=== PATIENT | female | born 1970 | race Caucasian/White ===

== ENCOUNTER 2017-02-08 18:57 | Emergency (ER) | payer MEDICAID ==
[~2017-02-08] VITALS: Ht 162.6 cm; Wt 76.7 kg
[2017-02-08 19:24] VITALS: BP 149/110
== END 2017-02-08 20:59 | disposition home or self-care (01) ==
LOC: ED 18:57
DX: Z45.2 Encounter for adjustment and management of vascular access device (principal); I10 Essential (primary) hypertension; Z88.0 Allergy status to penicillin; Z88.5 Allergy status to narcotic agent

== ENCOUNTER 2017-05-04 12:17 | Emergency (ER) | payer MEDICAID ==
[~2017-05-04] VITALS: Ht 165.1 cm; Wt 78.5 kg
[2017-05-04 12:19] VITALS: BP 123/83; Ht 165.1 cm; Wt 78.5 kg
== END 2017-05-04 16:15 | disposition left against medical advice (07) ==
LOC: ED 12:17
DX: Z53.21 Procedure and treatment not carried out due to patient leaving prior to being seen by health care provider (principal)

== ENCOUNTER 2017-05-06 02:32 | Inpatient (IN) | payer MEDICAID ==
[2017-05-06] VITALS (12 sets, daily range): BP systolic 86–137; BP diastolic 42–77
[~2017-05-06] VITALS: Ht 165.1 cm; Wt 73.9 kg
[2017-05-06 03:54] LABS: PLATELET COUNT 287 x10^3mcL (130-400)
[2017-05-06 03:56] LABS: RED CELL DISTRIBUTION WIDTH 15.3 % (11.5-14.5)
[2017-05-06 04:03] LABS: BILIRUBIN TOTAL 1.01 mg/dL (0.20-1.00); CALCIUM 7.7 mg/dL (8.5-10.1); CARBON DIOXIDE 13.5 mmol/L (21-32); POTASSIUM SERUM 4.1 mmol/L (3.5-5.1)
[2017-05-06 04:10] LABS: ALBUMIN 2.1 g/dL (3.4-5.0); TOTAL PROTEIN, SERUM 6.1 g/dL (6.4-8.2)
[2017-05-06 04:16] LABS: CREATININE SERUM 5.3 mg/dL (0.6-1.0)
[2017-05-06 04:19] LABS: BAND NEUTROPHIL 48 % (0-10); METAMYELOCTE 32 % (0-2); MONOCYTE 1 % (0-7); MYELOCYTE 1 % (0-2); SEGMENTED NEUTROPHILS 16 % (37-75)
[2017-05-06 04:20] LABS: rbc morphology (normal/abnorm) NORMAL (NORMAL)
[2017-05-06 04:29] LABS: CK-MB 0.7 ng/mL (0-3.6)
[2017-05-06] MEDS ORDERED: DEPAKOTE500 MG PO (05:14)
[2017-05-06] MEDS ORDERED: DILANTIN100 MG PO (05:14)
[2017-05-06] MEDS ORDERED: HYDROCHLOROTH12.5 M3 PO (05:15)
[2017-05-06 06:33] LABS: LIPASE 33 IU/L (73-393); MAGNESIUM 1.6 mg/dL (1.8-2.4); PHOSPHOROUS 7.1 mg/dL (2.5-4.9)
[2017-05-06 06:43] LABS: AMYLASE 16 U/L (25-115); CHOLESTEROL 110 mg/dL (<200); CHOLESTEROL/HDL RATIO 8.5; FREE T4 0.76 ng/dL (0.76-1.46); HDL CHOLESTEROL 13 mg/dL (40-60); TRIGLYCERIDES 406 mg/dL (<150)
[2017-05-06 06:44] LABS: T4(THYROXINE) 2.6 ug/dL (4.7-13.3)
[2017-05-06 09:23] LABS: T3 TOTAL 0.27 ng/mL
[2017-05-06 10:07] LABS: UA SPECIFIC GRAVITY >=1.030 (1.005-1.035); microscopic required? YES; urine erythrocyte 1+ (NEGATIVE)
[2017-05-06 10:58] LABS: AMPHETAMINE QUAL UR POSITIVE (NEG <=1000)
[2017-05-07] VITALS (19 sets, daily range): BP systolic 75–144; BP diastolic 44–91
[2017-05-07 05:40] LABS: PLATELET COUNT 145 x10^3mcL (130-400)
[2017-05-07 05:48] LABS: BASOPHIL % 0 % (0-2); RED CELL DISTRIBUTION WIDTH 15.4 % (11.5-14.5)
[2017-05-07 05:59] LABS: CARBON DIOXIDE 22.7 mmol/L (21-32); MAGNESIUM 1.5 mg/dL (1.8-2.4); PHOSPHOROUS 5.6 mg/dL (2.5-4.9)
[2017-05-07 06:11] LABS: ALBUMIN 1.4 g/dL (3.4-5.0); CALCIUM 5.9 mg/dL (8.5-10.1); CREATININE SERUM 4.9 mg/dL (0.6-1.0)
[2017-05-07 06:12] LABS: POTASSIUM SERUM 2.9 mmol/L (3.5-5.1)
[2017-05-07 18:28] LABS: CARBON DIOXIDE 26.9 mmol/L (21-32); CREATININE SERUM 3.5 mg/dL (0.6-1.0)
[2017-05-07 18:41] LABS: POTASSIUM SERUM 2.6 mmol/L (3.5-5.1)
[2017-05-08] VITALS (19 sets, daily range): BP systolic 94–125; BP diastolic 49–62
[2017-05-08 07:12] LABS: CALCIUM 7.3 mg/dL (8.5-10.1); CARBON DIOXIDE 27.1 mmol/L (21-32); MAGNESIUM 1.8 mg/dL (1.8-2.4); PHOSPHOROUS 2.8 mg/dL (2.5-4.9)
[2017-05-08 07:15] LABS: CREATININE SERUM 4.6 mg/dL (0.6-1.0); POTASSIUM SERUM 2.6 mmol/L (3.5-5.1)
[2017-05-08 07:19] LABS: PLATELET COUNT 55 x10^3mcL (130-400); RED CELL DISTRIBUTION WIDTH 15.4 % (11.5-14.5)
[2017-05-08 13:15] LABS: CALCIUM 6.9 mg/dL (8.5-10.1); CARBON DIOXIDE 28.7 mmol/L (21-32); POTASSIUM SERUM 5.3 mmol/L (3.5-5.1)
[2017-05-08 13:16] LABS: CREATININE SERUM 4.8 mg/dL (0.6-1.0)
[2017-05-08 13:50] LABS: BAND NEUTROPHIL 4 % (0-10); BASOPHIL 0 % (0-2); MONOCYTE 2 % (0-7); PLATELET MORPHOLOGY PLATELETS DECREASED; SEGMENTED NEUTROPHILS 93 % (37-75); rbc morphology (normal/abnorm) ABNORMAL (NORMAL)
[2017-05-08 17:10] LABS: CALCIUM 7.1 mg/dL (8.5-10.1); CARBON DIOXIDE 27.7 mmol/L (21-32)
[2017-05-08 17:15] LABS: POTASSIUM SERUM 2.6 mmol/L (3.5-5.1)
[2017-05-09] VITALS (15 sets, daily range): BP systolic 106–143; BP diastolic 54–84
[2017-05-09 05:35] LABS: CALCIUM 7.8 mg/dL (8.5-10.1); CARBON DIOXIDE 26.1 mmol/L (21-32); MAGNESIUM 2.1 mg/dL (1.8-2.4); PHOSPHOROUS 2.4 mg/dL (2.5-4.9)
[2017-05-09 05:37] LABS: CREATININE SERUM 5.4 mg/dL (0.6-1.0); POTASSIUM SERUM 2.9 mmol/L (3.5-5.1)
[2017-05-09 05:47] LABS: PLATELET COUNT 40 x10^3mcL (130-400); RED CELL DISTRIBUTION WIDTH 16.1 % (11.5-14.5)
[2017-05-09 06:10] LABS: BAND NEUTROPHIL 3 % (0-10); BASOPHIL 0 % (0-2); MONOCYTE 4 % (0-7); SEGMENTED NEUTROPHILS 91 % (37-75)
[2017-05-09 06:11] LABS: PLATELET MORPHOLOGY PLATELETS DECREASED; rbc morphology (normal/abnorm) ABNORMAL (NORMAL)
[2017-05-09 17:41] LABS: CALCIUM 8.4 mg/dL (8.5-10.1)
[2017-05-09 17:49] LABS: CREATININE SERUM 4.2 mg/dL (0.6-1.0); POTASSIUM SERUM 2.8 mmol/L (3.5-5.1)
[2017-05-10 03:20] VITALS: BP 111/77
[2017-05-10 05:02] LABS: BASOPHIL % 0 % (0-2); CALCIUM 8.3 mg/dL (8.5-10.1); CARBON DIOXIDE 25.2 mmol/L (21-32); MAGNESIUM 2.1 mg/dL (1.8-2.4); PHOSPHOROUS 3.2 mg/dL (2.5-4.9); PLATELET COUNT 75 x10^3mcL (130-400); POTASSIUM SERUM 3.9 mmol/L (3.5-5.1); RED CELL DISTRIBUTION WIDTH 16.3 % (11.5-14.5)
[2017-05-10 05:15] LABS: CREATININE SERUM 4.8 mg/dL (0.6-1.0)
[2017-05-10 07:45] VITALS: BP 109/69
[2017-05-10 18:40] VITALS: BP 108/59
[2017-05-10 21:18] VITALS: BP 123/78
[2017-05-11 04:57] VITALS: BP 112/71
[2017-05-11 07:39] LABS: CALCIUM 8.1 mg/dL (8.5-10.1); CARBON DIOXIDE 22.7 mmol/L (21-32); PHOSPHOROUS 4.5 mg/dL (2.5-4.9); POTASSIUM SERUM 3.8 mmol/L (3.5-5.1)
[2017-05-11 07:42] LABS: PLATELET COUNT 114 x10^3mcL (130-400); RED CELL DISTRIBUTION WIDTH 16.4 % (11.5-14.5)
[2017-05-11 07:43] LABS: CREATININE SERUM 4.8 mg/dL (0.6-1.0)
[2017-05-11 09:18] VITALS: BP 114/77
[2017-05-11 10:58] LABS: BAND NEUTROPHIL 2 % (0-10); BASOPHIL 0 % (0-2); METAMYELOCTE 4 % (0-2); MONOCYTE 6 % (0-7); MYELOCYTE 2 % (0-2); SEGMENTED NEUTROPHILS 81 % (37-75)
[2017-05-11 10:59] LABS: rbc morphology (normal/abnorm) ABNORMAL (NORMAL)
[2017-05-11 11:02] LABS: target cell (codocyte) 1+
[2017-05-11 11:18] VITALS: BP 118/79
[2017-05-11 16:41] VITALS: BP 114/76
[2017-05-11 21:06] VITALS: BP 117/70
[2017-05-12 05:57] VITALS: BP 128/79
[2017-05-12 06:52] LABS: PLATELET COUNT 184 x10^3mcL (130-400)
[2017-05-12 07:08] LABS: RED CELL DISTRIBUTION WIDTH 16.5 % (11.5-14.5)
[2017-05-12 07:13] LABS: CARBON DIOXIDE 23.8 mmol/L (21-32); MAGNESIUM 2.1 mg/dL (1.8-2.4); PHOSPHOROUS 5.1 mg/dL (2.5-4.9); POTASSIUM SERUM 3.5 mmol/L (3.5-5.1)
[2017-05-12 07:15] LABS: CREATININE SERUM 4.3 mg/dL (0.6-1.0)
[2017-05-12 10:26] VITALS: BP 120/76
[2017-05-12 10:36] LABS: BAND NEUTROPHIL 11 % (0-10); BASOPHIL 0 % (0-2); METAMYELOCTE 5 % (0-2); MONOCYTE 5 % (0-7); MYELOCYTE 3 % (0-2); SEGMENTED NEUTROPHILS 71 % (37-75)
[2017-05-12 10:37] LABS: PLATELET MORPHOLOGY LARGE PLATELET SEEN; rbc morphology (normal/abnorm) ABNORMAL (NORMAL); target cell (codocyte) 1+; tear drop cell (dacryocyte) 1+
[2017-05-12 14:23] VITALS: BP 125/76
[2017-05-12 16:56] VITALS: BP 121/78
[2017-05-12 20:30] VITALS: BP 112/86
[2017-05-13 04:30] VITALS: BP 98/61
[2017-05-13 06:40] LABS: PLATELET COUNT 266 x10^3mcL (130-400)
[2017-05-13 06:49] LABS: RED CELL DISTRIBUTION WIDTH 16.4 % (11.5-14.5)
[2017-05-13 06:57] LABS: CALCIUM 7.9 mg/dL (8.5-10.1); CARBON DIOXIDE 28.3 mmol/L (21-32); CREATININE SERUM 3.1 mg/dL (0.6-1.0); MAGNESIUM 1.8 mg/dL (1.8-2.4); PHOSPHOROUS 4.8 mg/dL (2.5-4.9)
[2017-05-13 09:01] VITALS: BP 124/78
[2017-05-13 10:43] LABS: ATYPICAL LYMPH 1 %; BAND NEUTROPHIL 4 % (0-10); BASOPHIL 0 % (0-2); MONOCYTE 7 % (0-7); PLATELET MORPHOLOGY PLATELETS NORMAL; SEGMENTED NEUTROPHILS 84 % (37-75); rbc morphology (normal/abnorm) ABNORMAL (NORMAL)
[2017-05-13 17:35] VITALS: BP 111/77
[2017-05-13 21:45] VITALS: BP 105/64
[2017-05-14 06:10] VITALS: BP 118/70
[2017-05-14 06:11] LABS: PLATELET COUNT 376 x10^3mcL (130-400)
[2017-05-14 06:14] LABS: CALCIUM 8.1 mg/dL (8.5-10.1); CARBON DIOXIDE 31.4 mmol/L (21-32); CREATININE SERUM 2.3 mg/dL (0.6-1.0); MAGNESIUM 1.5 mg/dL (1.8-2.4); PHOSPHOROUS 3.9 mg/dL (2.5-4.9)
[2017-05-14 06:38] LABS: POTASSIUM SERUM 2.9 mmol/L (3.5-5.1)
[2017-05-14 06:42] LABS: RED CELL DISTRIBUTION WIDTH 16.7 % (11.5-14.5)
[2017-05-14 08:52] VITALS: BP 117/76
[2017-05-14 11:04] LABS: BAND NEUTROPHIL 5 % (0-10); BASOPHIL 0 % (0-2); MONOCYTE 7 % (0-7); PLATELET MORPHOLOGY PLATELETS NORMAL; SEGMENTED NEUTROPHILS 83 % (37-75)
[2017-05-14 11:06] LABS: rbc morphology (normal/abnorm) ABNORMAL (NORMAL); target cell (codocyte) 1+
[2017-05-14 11:13] VITALS: Ht 165.1 cm; Wt 73.9 kg
[2017-05-14 12:46] LABS: CALCIUM 8.1 mg/dL (8.5-10.1); CARBON DIOXIDE 30.6 mmol/L (21-32); POTASSIUM SERUM 3.2 mmol/L (3.5-5.1)
[2017-05-14 13:01] VITALS: BP 123/82
[2017-05-14 16:53] VITALS: BP 128/81
[2017-05-14 20:47] VITALS: BP 114/71
[2017-05-15 04:53] VITALS: BP 134/93
[2017-05-15 06:43] LABS: BASOPHIL % 0 % (0-2); PLATELET COUNT 406 x10^3mcL (130-400); RED CELL DISTRIBUTION WIDTH 16.7 % (11.5-14.5)
[2017-05-15 06:53] LABS: CALCIUM 8.2 mg/dL (8.5-10.1); CARBON DIOXIDE 30.6 mmol/L (21-32); CREATININE SERUM 1.7 mg/dL (0.6-1.0); MAGNESIUM 1.5 mg/dL (1.8-2.4); POTASSIUM SERUM 3.4 mmol/L (3.5-5.1)
[2017-05-15 09:02] VITALS: BP 109/80
[2017-05-15 13:01] VITALS: BP 105/70
[2017-05-15 17:04] VITALS: BP 132/84
[2017-05-15 20:39] VITALS: BP 81/52
[2017-05-15 21:14] VITALS: BP 129/82
[2017-05-16] VITALS (7 sets, daily range): BP systolic 112–154; BP diastolic 67–92
[2017-05-16 06:34] LABS: PLATELET COUNT 392 x10^3mcL (130-400)
[2017-05-16 06:35] LABS: BASOPHIL % 0 % (0-2); RED CELL DISTRIBUTION WIDTH 16.4 % (11.5-14.5)
[2017-05-16 07:43] LABS: CALCIUM 7.7 mg/dL (8.5-10.1); CARBON DIOXIDE 32.5 mmol/L (21-32); CREATININE SERUM 1.3 mg/dL (0.6-1.0); MAGNESIUM 1.4 mg/dL (1.8-2.4); PHOSPHOROUS 3.2 mg/dL (2.5-4.9); POTASSIUM SERUM 3.3 mmol/L (3.5-5.1)
[2017-05-17 06:04] VITALS: BP 114/78
[2017-05-17 07:14] LABS: BASOPHIL % 0.1 % (0-2)
[2017-05-17 07:15] LABS: PLATELET COUNT 410 x10^3mcL (130-400); RED CELL DISTRIBUTION WIDTH 16.2 % (11.5-14.5)
[2017-05-17 08:47] VITALS: BP 112/73
[2017-05-17 08:55] LABS: CALCIUM 7.7 mg/dL (8.5-10.1); CARBON DIOXIDE 31.6 mmol/L (21-32); CREATININE SERUM 1.3 mg/dL (0.6-1.0); MAGNESIUM 1.4 mg/dL (1.8-2.4); PHOSPHOROUS 3.3 mg/dL (2.5-4.9)
[2017-05-17 08:59] LABS: POTASSIUM SERUM 2.9 mmol/L (3.5-5.1)
[2017-05-17 13:13] VITALS: BP 126/78
[2017-05-17 16:43] VITALS: BP 104/66
[2017-05-17 20:42] VITALS: BP 148/75
[2017-05-18 05:36] VITALS: BP 117/73
[2017-05-18 06:52] LABS: CALCIUM 8.2 mg/dL (8.5-10.1); CARBON DIOXIDE 33.6 mmol/L (21-32); CREATININE SERUM 1.1 mg/dL (0.6-1.0); MAGNESIUM 1.9 mg/dL (1.8-2.4); POTASSIUM SERUM 3.6 mmol/L (3.5-5.1)
[2017-05-18 06:55] LABS: BASOPHIL % 0 % (0-2); PLATELET COUNT 417 x10^3mcL (130-400); RED CELL DISTRIBUTION WIDTH 16.7 % (11.5-14.5)
[2017-05-18 10:18] VITALS: BP 113/68
[2017-05-18 18:00] VITALS: BP 131/84
[2017-05-18 21:34] VITALS: BP 109/79
[2017-05-19 04:48] VITALS: BP 114/77
[2017-05-19 07:18] LABS: CARBON DIOXIDE 29.6 mmol/L (21-32); CREATININE SERUM 1.1 mg/dL (0.6-1.0); MAGNESIUM 1.6 mg/dL (1.8-2.4); POTASSIUM SERUM 3.1 mmol/L (3.5-5.1)
[2017-05-19 07:21] LABS: BASOPHIL % 0.3 % (0-2)
[2017-05-19 07:59] LABS: PLATELET COUNT 404 x10^3mcL (130-400); RED CELL DISTRIBUTION WIDTH 17.1 % (11.5-14.5)
[2017-05-19 09:09] VITALS: BP 114/77
[2017-05-19 11:18] VITALS: BP 123/81
[2017-05-19 14:22] VITALS: BP 127/64
[2017-05-19 17:30] VITALS: BP 116/70
[2017-05-19 21:21] VITALS: BP 111/77
[2017-05-20 05:24] VITALS: BP 107/80
[2017-05-20 07:54] LABS: BASOPHIL % 0.2 % (0-2)
[2017-05-20 07:55] LABS: PLATELET COUNT 428 x10^3mcL (130-400); RED CELL DISTRIBUTION WIDTH 17.4 % (11.5-14.5)
[2017-05-20 08:09] LABS: CALCIUM 7.8 mg/dL (8.5-10.1); CARBON DIOXIDE 28.1 mmol/L (21-32); CREATININE SERUM 1.1 mg/dL (0.6-1.0); MAGNESIUM 1.6 mg/dL (1.8-2.4); PHOSPHOROUS 2.5 mg/dL (2.5-4.9); POTASSIUM SERUM 3.7 mmol/L (3.5-5.1)
[2017-05-20 08:50] VITALS: BP 118/78
[2017-05-20 16:35] VITALS: BP 131/88
[2017-05-20 20:28] VITALS: BP 132/87
[2017-05-21 05:48] VITALS: BP 123/86
[2017-05-21 08:04] LABS: CARBON DIOXIDE 31.2 mmol/L (21-32); CHLORIDE SERUM 105 mmol/L (98-107); GFR1 > 60 mL/min; GLUCOSE SERUM 87 mg/dL (74-106); MAGNESIUM 1.8 mg/dL (1.8-2.4); PHOSPHOROUS 3.6 mg/dL (2.5-4.9); SODIUM SERUM 141 mmol/L (136-145)
[2017-05-21 08:30] LABS: BASOPHIL % 0 % (0-2); RED CELL DISTRIBUTION WIDTH 17.3 % (11.5-14.5)
[2017-05-21 09:25] VITALS: BP 133/88
[2017-05-21 09:39] LABS: PLATELET COUNT 511 x10^3mcL (130-400)
[2017-05-21 16:41] VITALS: BP 138/88
[2017-05-21 21:54] VITALS: BP 134/91
[2017-05-22 05:56] VITALS: BP 123/70
[2017-05-22 08:01] LABS: CALCIUM 7.7 mg/dL (8.5-10.1); CARBON DIOXIDE 29.2 mmol/L (21-32); CREATININE SERUM 1.1 mg/dL (0.6-1.0); MAGNESIUM 1.8 mg/dL (1.8-2.4); PHOSPHOROUS 3.4 mg/dL (2.5-4.9); POTASSIUM SERUM 3.7 mmol/L (3.5-5.1)
[2017-05-22 08:15] LABS: BASOPHIL % 0.7 % (0-2)
[2017-05-22 08:19] LABS: PLATELET COUNT 461 x10^3mcL (130-400); RED CELL DISTRIBUTION WIDTH 17.6 % (11.5-14.5)
[2017-05-22 08:57] VITALS: BP 132/85
[2017-05-22 09:02] VITALS: BP 132/85
[2017-05-22 12:06] LABS: AMPHETAMINE QUAL UR NONE DETECTED (NEG <=1000)
[2017-05-22 16:31] VITALS: BP 156/86
[2017-05-22 20:55] VITALS: BP 139/95
[2017-05-22 22:30] VITALS: BP 140/75
[2017-05-23 05:35] VITALS: BP 133/92
[2017-05-23 06:30] VITALS: BP 123/79
[2017-05-23 07:38] LABS: BASOPHIL % 0.1 % (0-2); PLATELET COUNT 461 x10^3mcL (130-400); RED CELL DISTRIBUTION WIDTH 17.3 % (11.5-14.5)
[2017-05-23 07:47] LABS: CALCIUM 7.6 mg/dL (8.5-10.1); CARBON DIOXIDE 29.4 mmol/L (21-32); CREATININE SERUM 1.2 mg/dL (0.6-1.0); MAGNESIUM 1.8 mg/dL (1.8-2.4); PHOSPHOROUS 3.2 mg/dL (2.5-4.9); POTASSIUM SERUM 3.9 mmol/L (3.5-5.1)
[2017-05-23 09:11] VITALS: BP 147/89
[2017-05-23 17:19] VITALS: BP 144/107
[2017-05-23 21:40] VITALS: BP 145/96
[2017-05-24 05:38] VITALS: BP 141/98
[2017-05-24 07:20] LABS: BASOPHIL % 0.2 % (0-2)
[2017-05-24 07:27] LABS: PLATELET COUNT 513 x10^3mcL (130-400)
[2017-05-24 07:39] LABS: CARBON DIOXIDE 28.9 mmol/L (21-32); CREATININE SERUM 1.1 mg/dL (0.6-1.0); MAGNESIUM 1.8 mg/dL (1.8-2.4); PHOSPHOROUS 3.9 mg/dL (2.5-4.9); POTASSIUM SERUM 3.9 mmol/L (3.5-5.1)
[2017-05-24 09:46] VITALS: BP 149/97
[2017-05-24 17:55] VITALS: BP 136/91
[2017-05-25 06:03] VITALS: BP 129/87
[2017-05-25 07:23] LABS: CALCIUM 8.3 mg/dL (8.5-10.1); CARBON DIOXIDE 29.4 mmol/L (21-32); CHLORIDE SERUM 104 mmol/L (98-107); GFR1 > 60 mL/min; GLUCOSE SERUM 94 mg/dL (74-106); PHOSPHOROUS 4.9 mg/dL (2.5-4.9); POTASSIUM SERUM 3.7 mmol/L (3.5-5.1); SODIUM SERUM 142 mmol/L (136-145)
[2017-05-25 07:40] LABS: BASOPHIL % 0.3 % (0-2)
[2017-05-25 07:41] LABS: PLATELET COUNT 422 x10^3mcL (130-400); RED CELL DISTRIBUTION WIDTH 18.2 % (11.5-14.5)
[2017-05-25 08:58] VITALS: BP 132/89
[2017-05-25 16:28] VITALS: BP 145/92
[2017-05-25 20:29] VITALS: BP 125/86
[2017-05-26 05:25] VITALS: BP 129/79
[2017-05-26 06:48] LABS: CALCIUM 7.8 mg/dL (8.5-10.1); CARBON DIOXIDE 28.4 mmol/L (21-32); CHLORIDE SERUM 107 mmol/L (98-107); GFR1 > 60 mL/min; GLUCOSE SERUM 89 mg/dL (74-106); MAGNESIUM 2.1 mg/dL (1.8-2.4); PHOSPHOROUS 4.6 mg/dL (2.5-4.9); POTASSIUM SERUM 3.9 mmol/L (3.5-5.1); SODIUM SERUM 143 mmol/L (136-145)
[2017-05-26 07:23] LABS: BASOPHIL % 0.3 % (0-2); PLATELET COUNT 384 x10^3mcL (130-400); RED CELL DISTRIBUTION WIDTH 18.4 % (11.5-14.5)
[2017-05-26 08:55] VITALS: BP 119/76
[2017-05-26 12:44] VITALS: BP 136/80
[2017-05-26 16:34] VITALS: BP 126/86; BP 164/82
[2017-05-26 19:52] VITALS: BP 127/87
[2017-05-27 05:19] VITALS: BP 127/80
[2017-05-27 06:34] LABS: CALCIUM 7.8 mg/dL (8.5-10.1); CARBON DIOXIDE 29.9 mmol/L (21-32); CHLORIDE SERUM 106 mmol/L (98-107); GFR1 > 60 mL/min; GLUCOSE SERUM 91 mg/dL (74-106); POTASSIUM SERUM 3.9 mmol/L (3.5-5.1); SODIUM SERUM 143 mmol/L (136-145)
[2017-05-27 06:54] LABS: BASOPHIL % 0.5 % (0-2); PLATELET COUNT 282 x10^3mcL (130-400)
[2017-05-27 07:16] LABS: RED CELL DISTRIBUTION WIDTH 18.1 % (11.5-14.5)
[2017-05-27] MEDS ORDERED: DIL100 PO (09:24)
[2017-05-27] MEDS ORDERED: KEP500 PO (09:25)
[2017-05-27] MEDS ORDERED: VALLUD PO (09:25)
[2017-05-27] MEDS ORDERED: L40 PO (09:26)
[2017-05-27] MEDS ORDERED: KLOR-CON M2020 MEQ PO (09:26)
[2017-05-27 09:44] VITALS: BP 132/90
[2017-05-27 12:14] VITALS: BP 132/90
== END 2017-05-27 16:54 | disposition home or self-care (01) | DRG 720 ==
LOC: ED 02:32 → IC 03:53 → ED 03:53 → MU 03:53 → DU 03:53 → IC 05-08 23:00 → DU 05-10 11:17 → MU 05-12 09:35 → DU 05-14 18:01 → MU 05-16 08:23
PROVIDERS: Emergency Medicine; Family Medicine; Family Medicine Sports Medicine; Internal Medicine Interventional Cardiology; Internal Medicine Nephrology; Student in an Organized Health Care Education/Training Program
PROC: 5A1945Z Respiratory Ventilation, 24-96 Consecutive Hours (ICD-10-PCS; 2017-05-06)
PROC: 0BH17EZ Insertion of Endotracheal Airway into Trachea, Via Natural or Artificial Opening (ICD-10-PCS; 2017-05-06)
PROC: B24BZZ4 Ultrasonography of Heart with Aorta, Transesophageal (ICD-10-PCS; 2017-05-06)
PROC: 02HV33Z Insertion of Infusion Device into Superior Vena Cava, Percutaneous Approach (ICD-10-PCS; 2017-05-06)
PROC: 5A1D70Z Performance of Urinary Filtration, Intermittent, Less than 6 Hours Per Day (ICD-10-PCS; 2017-05-06)
PROC: 06HM33Z Insertion of Infusion Device into Right Femoral Vein, Percutaneous Approach (ICD-10-PCS; principal; 2017-05-06 14:00)
PROC: 5A1D70Z Performance of Urinary Filtration, Intermittent, Less than 6 Hours Per Day (ICD-10-PCS; 2017-05-09)
DX: A40.0 Sepsis due to streptococcus, group A (principal); N17.0 Acute kidney failure with tubular necrosis; J96.01 Acute respiratory failure with hypoxia; R65.21 Severe sepsis with septic shock; J69.0 Pneumonitis due to inhalation of food and vomit; R18.8 Other ascites; I50.43 Acute on chronic combined systolic (congestive) and diastolic (congestive) heart failure; I42.0 Dilated cardiomyopathy; E43 Unspecified severe protein-calorie malnutrition; E87.1 Hypo-osmolality and hyponatremia; I11.0 Hypertensive heart disease with heart failure; N39.0 Urinary tract infection, site not specified; E87.6 Hypokalemia; E83.52 Hypercalcemia; I80.9 Phlebitis and thrombophlebitis of unspecified site; B96.20 Unspecified Escherichia coli [E. coli] as the cause of diseases classified elsewhere; Z16.12 Extended spectrum beta lactamase (ESBL) resistance; G40.909 Epilepsy, unspecified, not intractable, without status epilepticus; Z68.27 Body mass index [BMI] 27.0-27.9, adult; Z16.24 Resistance to multiple antibiotics; Z88.0 Allergy status to penicillin; Z88.5 Allergy status to narcotic agent; Z79.899 Other long term (current) drug therapy; Z91.19 Patient's noncompliance with other medical treatment and regimen; Z78.1 Physical restraint status
CPT/HCPCS: 36556; 36600; 83880; 84439; 86580; 92610; 97110-GP; 97116-GP; 97530-GP; A4628; G0480; J1165; J1170; J1580; J1642; J1644; J1885; J1940; J1956; J2001; J2060; J2250; J2370; J2405; J3010; J3370; J3475; J3480; J3490; J7030; J7040; J7050; J7620; J7633; P9047; Q0092; Q0163

== ENCOUNTER 2019-07-10 19:29 | Inpatient (IN) | payer MEDICAID ==
[~2019-07-10] VITALS: Ht 162.6 cm; Wt 55.1 kg
[~2019-07-10 19:29] MED LIST: DEPAKOTE500 MG PO; DIL100 PO; DILANTIN100 MG PO; HYDROCHLOROTH12.5 M3 PO; KEP500 PO; KLOR-CON M2020 MEQ PO; L40 PO; VALLUD PO
--- NOTE | 2019-07-10 19:43 | NUR ---
EKG IN PROGRESS AT BEDSIDE.
--- NOTE | 2019-07-10 19:48 | NUR ---
REC'D A 49/F IN RM 4 WITH C/O SOB SINCE THE AM. HX OF CHF. PT AAOX4, CLEAR SPEECH, RESP EU, IN MILD DISTRESS.
--- NOTE | 2019-07-10 19:57 | NUR ---
DR BRAMBILA AT BEDSIDE FOR MSE.
[2019-07-10 20:53] LABS: BASOPHIL % 0.3 % (0-2); PLATELET COUNT 280 x10^3mcL (130-400)
[2019-07-10 20:57] LABS: CARBON DIOXIDE 24.9 mmol/L (21-32); CHLORIDE SERUM 106 mmol/L (98-107); CREATININE SERUM 0.9 mg/dL (0.6-1.0); GFR1 > 60 mL/min; GLUCOSE SERUM 104 mg/dL (74-106); SODIUM SERUM 139 mmol/L (136-145)
[2019-07-10 21:01] LABS: ALKALINE PHOSPHATASE 64 U/L (46-116); ALT/SGPT 34 U/L (14-59); AST/SGOT 26 U/L (15-37); BILIRUBIN TOTAL 0.5 mg/dL (0.20-1.00); TOTAL PROTEIN, SERUM 6.3 g/dL (6.4-8.2)
--- NOTE | 2019-07-10 21:50 | NUR ---
HARD STICK, MULTIPLE ATTEMPTS.
--- NOTE | 2019-07-10 22:18 | NUR ---
PT ADMITS TO METH USE LAST WEEK. PT STS "I DIDNT KNOW MY DAUGTHER HAD PUT METH IN MY COFFEE LAST WEEK".
--- NOTE | 2019-07-10 22:19 | NUR ---
DR BRAMBILA AT BEDSIDE DISCUSSING POC WITH THE PT.
--- NOTE | 2019-07-10 23:08 | NUR ---
PT ASLEEP, EASILY AROUSABLE, RESP EU, IN NO ACUTE DISTRESS.
--- NOTE | 2019-07-10 23:12 | NUR ---
REPORT GIVEN TO GABBY SANTOS TO ASSUME CARE OF THE PT.
--- NOTE | 2019-07-10 23:31 | NUR ---
RECEIVED PT FROM ED VIA REA, CAME IN DUE TO SOB X1 DAY. AAOX4. DENIES HEADACHE/DIZZINESS. STATED THAT SHE HAS MILD SOB WORSE ON WALKING. O2 SAT=95%, RA. DENIES CHEST PAIN/PRESSURE, ST W/ BBB ON THE MONITOR, W/ PACEMAKER/AICD ON THE ON THE LEFT CHEST. DENIES ABDOMINAL DISCOMFORT. VOIDS. IV SITE PATENT AND INTACT. SIDE RAILS UPX2. CALL LIGHT ON REACH. WILL ENDORSE TO PRIMARY NURSE JEFFERY FOR CONTINUITY OF CARE
[2019-07-10 23:33] LABS: CHOLESTEROL/HDL RATIO 2.8
[2019-07-10 23:35] VITALS: BP 120/68
--- NOTE | 2019-07-10 23:35 | NUR ---
RECEIVED PT FROM GABBY RIVERA. PT IN NO ACUTE DISTRESS. CALL LIGHT WITHIN REACH. BED IN LOWEST POSITION. WILL CONTINUE TO MONITOR.
[2019-07-10 23:38] LABS: T3 TOTAL 0.93 ng/mL
[2019-07-10 23:41] LABS: FREE T4 0.92 ng/dL (0.76-1.46)
[2019-07-10 23:43] VITALS: Ht 162.6 cm; Wt 55.1 kg
[2019-07-10 23:49] LABS: FREE THYROXINE INDEX 1.6 ug/dL (1.4-4.5); T4(THYROXINE) 4.4 ug/dL (4.7-13.3)
--- NOTE | 2019-07-11 02:09 | NUR ---
PT RESTING IN BED. RR EVEN AND UNLABORED. IN NO ACUTE DISTRESS. CALL LIGHT WITHIN REACH. BED IN LOWEST POSITION. WILL CONTINUE TO MONITOR.
[2019-07-11 06:25] VITALS: BP 120/68
[2019-07-11 06:33] VITALS: BP 124/81
[2019-07-11 06:36] LABS: BASOPHIL % 0.8 % (0-2); PLATELET COUNT 293 x10^3mcL (130-400)
--- NOTE | 2019-07-11 07:10 | NUR ---
RECEIVED PT IN BED, AWAKE. AOX4. VERBALLY RESPONSIVE. CTA, ON ROOM AIR. REPORTS SOB ON EXERTION, BUT DENIES SOB AT THIS TIME. ON TELE MONITOR 4, SINUS TACHYCARDIA, NO C/O CHEST PAIN/PRESSURE. PULSES PALPABLEX4, NO EDEMA NOTED. IV SITE NOTED ON R EJ, 20G, SALINE LOCKED.DENIES ANY PAIN AT THIS TIME. BED POSITIONED LOW, CALL LIGHT WITHIN REACH. EDUCATED TO CALL FOR ANY DISCOMFORT/PAIN.
[2019-07-11 07:26] VITALS: BP 126/82
[2019-07-11 07:58] LABS: CALCIUM 8.2 mg/dL (8.5-10.1); CARBON DIOXIDE 27.6 mmol/L (21-32); CHLORIDE SERUM 103 mmol/L (98-107); CREATININE SERUM 0.9 mg/dL (0.6-1.0); GFR1 > 60 mL/min; GLUCOSE SERUM 86 mg/dL (74-106); POTASSIUM SERUM 3.3 mmol/L (3.5-5.1); SODIUM SERUM 140 mmol/L (136-145)
--- NOTE | 2019-07-11 11:44 | NUR ---
PT CURRENTLY GETTING ECHOCARDIOGRAM DONE. C/O HEADACHE 12/02. GIVEN ACETAMINOPHEN 650MG PO. WILL CONT TO MONITOR.
[2019-07-11 11:49] LABS: microscopic required? YES; urine erythrocyte NEGATIVE (NEGATIVE)
[2019-07-11 12:42] VITALS: BP 109/77
[2019-07-11 13:38] LABS: AMPHETAMINE QUAL UR POSITIVE (See below)
[2019-07-11 16:41] VITALS: BP 109/74
--- NOTE | 2019-07-11 17:34 | NUR ---
SERUM K LOW, AT 3.3, DR WATSON NOTIFIED, TO BE GIVEN [id number] MEQ PER MD ORDER.
--- NOTE | 2019-07-11 17:42 | NUR ---
SPOKE WITH DR WATSON RE ST ELEVATION NOTED ON QUALITY SYSTEMS SPECIALIST AT AROUND 1700, WILL ORDER EKG. PT ASSESSED, NO C/O CHEST PAIN/CHEST PRESSURE AT THIS TIME.
--- NOTE | 2019-07-11 18:16 | NUR ---
PT IN BED AWAKE, TALKING ON THE PHONE. NO C/O CHEST PAIN./PRESSURE, NO C/O SOB. DENIES PAIN/ ANY DISTRESS. WILL ENDORSE TO CROP PRODUCTION ADVISOR RN.
--- NOTE | 2019-07-11 19:30 | NUR ---
PT RECIEVED FROM DAY NURSE, PT RESTING IN BED AT THIS TIME. DENIES PAIN OR DISCOMFORT. PT A/O X4, CALM AND COOPERATIVE AT THIS TIME. TELE 4, ST WITH BBB AND PVCS. DENIES CP, NV, DIZZINESS, OR PALPATATIONS. PALPABLE PULSES, NO EDEMA NOTED AT THIS TIME. BEATHING E/U ON RA, DENIES SOB AT THIS TIME. ABD SOFT AND ROUND, DENIES PAIN TO PALPATION. PT AMBULATORY AT BASELINE. IV TO YAMEL GUERRA. BED AT LOWEST POSITION. CALL LIGHT WITHIN REACH. WILL CONTINUE TO MONITOR.
[2019-07-11 21:11] VITALS: BP 101/70
--- NOTE | 2019-07-12 01:39 | NUR ---
RECEIVED REPORT FROM CHAO PIERRE REGARDING PT. PT IS RESTING WITH EYES CLOSED. NO DISTRESS AND DISCOMFORT NOTED. WILL CONTINUE TO MONITOR.
--- NOTE | 2019-07-12 02:14 | NUR ---
REPORT GIVEN TO SIMIN PIERRE. PT RESTING IN BED AT THIS TIME. DENIES PAIN OR DISCOMFORT. BREATHING E/U ON RA. ALL NEEDS AND CONCERNS ADDRESSED THIS SHIFT. BED AT LOWEST POSITION. CALL LIGHT WITHIN EACH .WILL CONTINUE TO MONITOR.
[2019-07-12 06:10] VITALS: BP 106/72
--- NOTE | 2019-07-12 06:18 | NUR ---
PT RESTING WITH EYES CLOSED. EASILY AROUSABLE WITH VERBAL STIMULI. DENIES SOB THUS FAR. SPO2 100% ON ROOM AIR. MADE PT COMFORTABLE. WILL ENDORSE TO THE AM NURSE ACCORDINGLY.
[2019-07-12 06:29] LABS: BASOPHIL % 0.5 % (0-2); PLATELET COUNT 345 x10^3mcL (130-400)
[2019-07-12 06:34] LABS: CALCIUM 8.4 mg/dL (8.5-10.1); CARBON DIOXIDE 30.3 mmol/L (21-32); CREATININE SERUM 1.1 mg/dL (0.6-1.0); MAGNESIUM 2.1 mg/dL (1.8-2.4); POTASSIUM SERUM 3.8 mmol/L (3.5-5.1)
[2019-07-12 06:49] LABS: RED CELL DISTRIBUTION WIDTH 16.5 % (11.5-14.5)
[2019-07-12 07:54] VITALS: BP 111/78
--- NOTE | 2019-07-12 08:06 | NUR ---
RECIEVED REPORT FROM NOC NURSE. PATIENT CURRENTLY AWAKE ALERT AND ORIENTED. PATIENT HAS A RIJ [address] CURRENTLY INFUSING NS AT A TKO RATE OF 5cc/HOUR. NO REPORT OF SOB AT THIS TIME FROM PATIENT. NO REPORT OF PAIN FROM PATIENT AT THIS TIME. LUNG SOUNDS CLEAR TO AUSCULTATION ON ROOM AIR AND PATIENT IS SATURATING AT 94%. WILL CONTINUE TO MONITOR PATIENT.
[2019-07-12 12:03] VITALS: BP 118/83
--- NOTE | 2019-07-12 13:00 | NUR ---
PATIENT DISAPPOINTED BECAUSE SHE DID NOT RECIEVE LUNCH. PATIENT STATED TO CHARGE NURSE THAT SHE WANTS TO LEAVE AMA. SPOKE WITH PATIENT ABOUT IMPORTANCE OF STAYING INPATIENT FOR APPRORIATE CARE. ORDERED A NEW HOT MEAL FROM THE KITCH[employer] FOR PATIENT. PATIENT AGREES TO STAYING IN THE HOSPITAL FOR CONTINUED CARE. NEW MEAL FROM [employer] RECIEVED BY PATIENT.
--- NOTE | 2019-07-12 15:38 | NUR ---
PER CARDIOLOGY MONITORING PATIENT HAS BEEN REMOVED FROM TELEMETRY MONITORING AND IS NOW A MEDSURG PATIENT.
[2019-07-12 16:32] VITALS: BP 89/54
--- NOTE | 2019-07-12 17:52 | NUR ---
URINE CULTURE RECIEVED FOR PATIENT. URINE CULTURE REVEALED "MIXED UROGENITAL GERALDO". CURRENTLY AWAITING FURTHER PHYSCIAN RECOMMENDATIONS. 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 NO REPORT OF SOB OR PAIN THROUGHOUT THE SHIFT. PATIENT CURRENTLY ON ROOM AIR, SATURATING AT 94%. RIJ INTACT AND SALINE LOCKED. PATIENT TO RECIEVE ANTIBIOTIC PER EMAR AT 1999. WILL ENDORSE ALL FURTHER CARE TO THE NOC NURSE.
--- NOTE | 2019-07-12 19:40 | NUR ---
PT. AWAKE, ALERT, ORIENTED X4. DENIES HEADACHE OR DIZZINESS. BREATH SOUNDS CLEAR THROUGHOUT LUNG AVILES, RESP. EVEN, UNLABORED. NO SOB NOTED. PT. ON RA. DENIES CHESTPAIN OR DISCOMFORT. SKIN APPEARS INTACT THROUGHOUT. PEDAL PULSES STRONG BLE. NO EDEMA NOTED. IV TO RIJ, INTACT. CALL LIGHT WITHIN REACH.
[2019-07-12 20:09] VITALS: BP 117/77
--- NOTE | 2019-07-13 00:11 | NUR ---
PT. SLEEPING AT THIS TIME. CALL LIGHT REMAINS WITHIN REACH.
[2019-07-13 06:06] VITALS: BP 106/73
--- NOTE | 2019-07-13 06:34 | NUR ---
PT. OOB TO BATH ROOM , GAIT STEADY. ASSISTED BACK TO BED. PT. REFUSED MORNING LABS. NO COMPLAINTS THROUGHOUT THE SHIFT. CALL LIGHT WITHIN REACH. WILL ENDORSE PT. CARE OVER TO INCOMING NURSE.
--- NOTE | 2019-07-13 07:20 | NUR ---
RECEIVED PT RESTING IN BED. NO ACUTE DISTRESS. AAOX4. RESP EVEN AND UNLABORED ON RA. NO SOB AT THIS TIME. IV WITH NO REDNESS OR SWELLING NOTED. CONTACT ISOLATION. HOB SLIGHTLY ELEVATED. BED IN LOW POSITION, CALL LIGHT WITHIN REACH. WILL CONTINUE TO MONITOR.
[2019-07-13 07:58] VITALS: BP 107/79
--- NOTE | 2019-07-13 08:54 | NUR ---
PT STATED SHE WANTED TO LEAVE AMA AND DID NOT WANT TO WAIT FOR THE DOCTOR TO TALK TO HER BEFORE LEAVING AMA. AMA FORM SIGNED AND PLACED IN CHART. IV DC'D WITH CATHETER INTACT. BELONGINGS WITH PT. PT IN NO ACUTE DISTRESS AT TIME OF LEAVING AMA. AWAKE, ALERT, AND ORIENTED. VSS. AMBULATORY. SAM RODRIGUEZ ACCOMPANIED PT TO LOBBY.
[2019-07-13] MEDS ORDERED: ZESTRIL5 MG PO (12:16)
[2019-07-13] MEDS ORDERED: CARVEDILOL3.125 M1 PO (12:18)
[2019-07-13] MEDS ORDERED: LASIX40 MG PO (12:20)
[2019-07-13] MEDS ORDERED: MAGNESIUM400 M1 PO (12:26)
== END 2019-07-13 13:39 | disposition left against medical advice (07) | DRG 194 ==
LOC: ED 19:29 → DU 22:36 → MU 07-12 15:34
PROVIDERS: Emergency Medicine; ADMIT Internal Medicine
DX: I11.0 Hypertensive heart disease with heart failure (principal); I21.A1 Myocardial infarction type 2; J96.00 Acute respiratory failure, unspecified whether with hypoxia or hypercapnia; J18.9 Pneumonia, unspecified organism; Z79.01 Long term (current) use of anticoagulants; E44.0 Moderate protein-calorie malnutrition; I50.23 Acute on chronic systolic (congestive) heart failure; F15.20 Other stimulant dependence, uncomplicated; G40.909 Epilepsy, unspecified, not intractable, without status epilepticus; F17.210 Nicotine dependence, cigarettes, uncomplicated; Z68.20 Body mass index [BMI] 20.0-20.9, adult; Z86.711 Personal history of pulmonary embolism
CPT/HCPCS: 83880; 84439; 87804; G0378; J1940; J1956; J2060; J7050; Q0092

== ENCOUNTER 2019-07-24 02:38 | Emergency (ER) | payer MEDICAID ==
[~2019-07-24] VITALS: Ht 162.6 cm; Wt 63.5 kg
[~2019-07-24 02:38] MED LIST changes: +CARVEDILOL3.125 M1 PO; +LASIX40 MG PO; +MAGNESIUM400 M1 PO; +ZESTRIL5 MG PO
[2019-07-24 02:54] VITALS: Ht 162.6 cm; Wt 63.5 kg
[2019-07-24 04:21] LABS: BASOPHIL % 0.2 % (0-2); PLATELET COUNT 187 x10^3mcL (130-400)
[2019-07-24 04:25] LABS: RED CELL DISTRIBUTION WIDTH 16.7 % (11.5-14.5)
[2019-07-24 04:30] LABS: CALCIUM 8.4 mg/dL (8.5-10.1); CARBON DIOXIDE 23.8 mmol/L (21-32); CHLORIDE SERUM 107 mmol/L (98-107); CREATININE SERUM 0.7 mg/dL (0.6-1.0); GFR1 > 60 mL/min; GLUCOSE SERUM 102 mg/dL (74-106); POTASSIUM SERUM 3.7 mmol/L (3.5-5.1); SODIUM SERUM 140 mmol/L (136-145)
[2019-07-24 04:37] LABS: ALKALINE PHOSPHATASE 64 U/L (46-116); ALT/SGPT 32 U/L (14-59); AST/SGOT 28 U/L (15-37); BILIRUBIN TOTAL 0.54 mg/dL (0.20-1.00); LIPASE 75 IU/L (73-393)
[2019-07-24 04:39] LABS: ALBUMIN 2.6 g/dL (3.4-5.0); TOTAL PROTEIN, SERUM 5.7 g/dL (6.4-8.2)
[2019-07-24 05:58] VITALS: BP 114/84
== END 2019-07-24 05:58 | disposition home or self-care (01) ==
LOC: ED 02:38
PROVIDERS: Emergency Medicine
DX: R06.00 Dyspnea, unspecified (principal); R22.41 Localized swelling, mass and lump, right lower limb; R22.42 Localized swelling, mass and lump, left lower limb; I11.0 Hypertensive heart disease with heart failure; I50.9 Heart failure, unspecified; F17.210 Nicotine dependence, cigarettes, uncomplicated; Z98.890 Other specified postprocedural states
CPT/HCPCS: 83880; J1940; Q0092